=== PATIENT | female | born 1960 | race Caucasian/White ===

== ENCOUNTER 2017-05-08 09:23 | Emergency (ER) | payer OTHER ==
[2017-05-08] MEDS ORDERED: Acetaminophen/oxyCODONE 325-5 MG Tab PO ONE (09:56)
[2017-05-08] MEDS ORDERED: Ibuprofen 600 MG Tab PO ONE (09:57)
[2017-05-08] MEDS ORDERED: Ondansetron 4 MG Tab.DIS PO ONE (09:57)
[2017-05-08] MEDS ORDERED: Bupivacaine 0.5% 10 ML SDV INJECT ONE (10:04)
--- NOTE | 2017-05-08 10:04 | EDM.PDOC ---
ED HPI GENERAL MEDICAL PROBLEM - General Chief Complaint: Laceration Stated Complaint: FINGER INJURY Time Seen by Provider: 05/08/17 09:56 Source of Information: Reports: Patient History Limitations: Reports: No Limitations - History of Present Illness INITIAL COMMENTS - FREE TEXT/NARRATIVE: 56-year-old female presents the ED with a crush type injury to distal aspect of her right index finger. Of note she is right-hand dominant. Injury occurred in the workplace about 0830 hrs. this morning. 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 She reports that the finger got slammed in the cooler door handle. She pulled her finger out of the closed door. Resultant injury to the distal aspect of the right index finger. Tetanus toxoid is up-to-date about 4 years ago. She denies any other injuries. Onset: Today Onset Date: 05/08/17 Onset Time: 08:30 Duration: Minutes: Location: Reports: Upper Extremity, Right (Right distal index finger) Quality: Reports: Ache, Stabbing, Throbbing Severity: Moderate Improves with: Reports: None Worsens with: Reports: Movement Context: Reports: Trauma (Slammed in a large cooler door) Associated Symptoms: Reports: No Other Symptoms ( in the workplace) Treatments [employer]: Reports: Other (see below) (None) Right Hand Pain Score (Numeric/FACES): 6 - Related Data Allergies Allergy/AdvReac Type Severity Reaction Status Date / Time acetaminophen [From Percocet] Allergy Irritabilit Verified 05/08/17 10:26 y diazepam [From Valium] Allergy Irritabilit Verified 05/08/17 10:28 y morphine Allergy Anxiety Verified 05/08/17 10:27 oxycodone [From Percocet] Allergy Irritabilit Verified 05/08/17 10:26 y IV p-Dye Allergy Anaphylactic Uncoded 05/08/17 09:57 Shock Home Meds: Home Meds Meclizine [Antivert] 25 mg PO Q6HR PRN 07/06/15 [History] amLODIPine [Norvasc] 10 mg PO DAILY 07/06/15 [History] Cyclobenzaprine [Flexeril] 10 mg PO Q8H PRN 05/08/17 [History] Lisinopril/Hydrochlorothiazide [Lisinopril-Hctz 20-25 mg Tab] 20 - 25 mg PO BEDTIME 05/08/17 [History] Minocycline HCl 100 mg PO BID #20 capsule 05/08/17 [Rx] Nabumetone 500 mg PO BID 05/08/17 [History] Omeprazole 40 mg PO DAILY 05/08/17 [History] traMADol [Ultram] 50 mg PO Q6H #30 tablet 05/08/17 [Rx] Past Medical History Other HEENT History: inner ear infection, glasses Other Musculoskeletal History: rheumatoid arthritis Social & Family History - Tobacco Use Smoking Status *Q: Never Smoker Second Hand Smoke Exposure: Yes - Alcohol Use Days Per Week of Alcohol Use: 0 Number of Drinks Per Day: 0 Total Drinks Per Week: 0 - Recreational Drug Use Recreational Drug Use: No Drug Use in Last 12 Months: No - Living Situation & Occupation Occupation: Employed ED ROS GENERAL - Review of Systems Review Of Systems: See Below Constitutional: Reports: No Symptoms HEENT: Reports: No Symptoms Respiratory: Reports: No Symptoms Cardiovascular: Reports: Blood Pressure Problem Endocrine: Reports: No Symptoms GI/Abdominal: Reports: No Symptoms : Reports: No Symptoms Musculoskeletal: Reports: Back Pain (Occasional positive back pain), Joint Pain , Other Skin: Reports: No Symptoms Neurological: Reports: No Symptoms Psychiatric: Reports: No Symptoms Hematologic/Lymphatic: Reports: No Symptoms Immunologic: Reports: No Symptoms ED EXAM, SKIN/RASH Exam: See Below Exam Limited By: No Limitations General Appearance: Alert, WD/WN, Mild Distress Extremities: Other (Examination was confined to the injury to her right hand. She has suffered a crush type injury to the distal aspect of her right index finger. The nail has been completely avulsed from the nail bed. The finger is deformed with deviation to the ulnar aspect. Suspect underlying phalangeal fracture which would be open.) Neurological: Alert, Oriented ( No other fingers are injured.), CN II-XII Intact , Normal Cognition, Normal Gait Psychiatric: Normal Affect, Normal Mood Skin: Warm, Dry, Intact, Normal Color, No Rash ED SKIN PROCEDURES - Laceration/Wound Repair Right Distal Finger Lac/Wound length In cm: 2.0 Appearance: Subcutaneous, Clean Distal NVT: Neuro & Vascular Intact Anesthetic Type: Digital Local Anesthesia - Bupivicaine (Marcaine): 0.5% Plain Local Anesthetic Volume: Other (6cc) Skin Prep: Saline Exploration/Debridement/Repair: Wound Explored, Multiple Flaps Aligned Closed with: Sutures Suture Size: 4-0 # of Sutures: 3 Suture Type: Nylon, Running, Simple Suture Size: 4-0 # of Sutures: 3 (Ethilon sutures were used through the fingernail to reapproximate and realign the fingernail avulsion from the nailbed.) Repaired with: Vicryl Course - Vital Signs Last Recorded V/S: Last Vital Signs Temp 36.1 C 05/08/17 09:48 Pulse 78 05/08/17 09:48 Resp 16 05/08/17 09:48 BP 136/79 05/08/17 09:48 Pulse Ox 100 05/08/17 09:48 - Orders/Labs/Meds Orders: Active Orders 24 hr Category Date Time Status Fingers Second Digit Rt F6 [CR] Stat Exams 05/08/17 09:57 Taken Fingers Second Digit Rt F6 [CR] Stat Exams 05/08/17 11:12 Taken Meds: Medications Discontinued Medications Generic Name Dose Route Start Last Admin Trade Name Freq PRN Reason Stop Dose Admin Amoxicillin/Clavulanate Potassium 1 tab 05/08/17 11:14 05/08/17 11:23 Augmentin 875 Mg/125 Mg PO 05/08/17 11:15 1 tab ONETIME ONE Administration Bupivacaine HCl 10 ml 05/08/17 10:04 05/08/17 10:17 Sensorcaine-Mpf 0.5% INJECT 05/08/17 10:05 10 ml ONETIME ONE Administration Ibuprofen 600 mg 05/08/17 09:57 05/08/17 10:17 Motrin PO 05/08/17 09:58 600 mg ONETIME ONE Administration Ondansetron HCl 4 mg 05/08/17 09:57 05/08/17 10:19 Zofran Odt PO 05/08/17 09:58 4 mg ONETIME ONE Administration Oxycodone/Acetaminophen 1 tab 05/08/17 09:56 05/08/17 10:21 Percocet 325-5 Mg PO 05/08/17 09:57 Not Given ONETIME ONE Tramadol HCl 50 mg 05/08/17 10:16 05/08/17 10:23 Ultram PO 05/08/17 10:17 50 mg ONETIME ONE Administration - Radiology Interpretation Free Text/Narrative:: 56-year-old female presents to the ED with crush injury to the distal aspect of her right index finger. The nail has been completely avulsed from the nailbed. There is deviation of the phalanx ulnarly suggesting fracture. There is an open laceration in this area suggesting an open fracture. Plan digital block with Marcaine 0.5%. Also given Tramadol 50mg tablet(allergy to Percocet) with Motrin 600 mg by mouth and Zofran 4 mg sublingual for pain relief. X-ray of the finger will be obtained and decision made on how best to manage the fracture and provide wound closure. - Re-Assessments/Exams Free Text/Narrative Re-Assessment/Exam: 05/08/17 10:45: X-rays of the right index finger reveal a fracture of the proximal phalanx with a large enough fragment that could be pinned back in place. Digital block is been carried out using 0.5% Marcaine. 05/08/17 11:30: Finger and fingernail which has been avulsed were replaced back into position. She is wearing acrylic fingernails and the extremely hard and very difficult to allow suture needle to pass through to reapproximate the fingertip in its normal position. Lacerations both ulnar and radial aspect on the dorsal aspect of the finger were sutured with 5-0 Ethilon 3. 3 4-0 Vicryl sutures were placed through the nail and distal finger to reapproximate the nail in anatomical position. X-ray done post suture repair reveals less than ideal approximation of the bone fragment. I therefore contacted bone and joint clinic in [place] and will have her seen by one of the hand surgeons early next week to see if they would treat this differently with pinning of the distal phalanx. In the meantime she will be placed on minocycline 100 mg twice daily for 10 days to prevent secondary wound infection since it has good coverage against MRSA etc. Did receive Augmentin 875 mg orally in the ED. She will prefers tramadol for pain and therefore will use tramadol 50 mg tablet 1 or 2 every 4-6 hours for pain relief. 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 Departure - Departure Time of Disposition: 11:33 Disposition: Home, Self-Care 01 Condition: Fair Clinical Impression: Open fracture of finger of right hand Qualifiers: Encounter type: initial encounter Finger: index finger Phalanx: distal Fracture alignment: displaced Qualified Code(s): S62.630B - Displaced fracture of distal phalanx of right index finger, initial encounter for open fracture - Discharge Information Prescriptions: Minocycline HCl 100 mg PO BID #20 capsule traMADol [Ultram] 50 mg PO Q6H #30 tablet Instructions: Finger Fracture, [id number] Referrals: PCP,None [Primary Care Provider] - Forms: ED Department Discharge, ED Return to Work/School Form Additional Instructions: Evaluation the emergency room this morning in regards to crush type injury to the distal aspect of your right index finger. This occurred in the workplace this morning. Injury resulted in a bassinet of the fingernail from the nail bed. And lacerations adjacent to the nail on both sides. X-rays confirm a fracture through the distal phalanx meaning this is an open fracture with bone exposed to the outside elements. Acrylic fingernail in place made suture repair difficult to reapproximate the nail and bone in normal position. X-rays post laceration repair shows the bone to still be slightly out of position. Therefore I contacted bone and joint clinic in [facility] and they will have a one of the hand surgeons review the wound next week. They will call you to set up an appropriate appointment time. In the meantime I would suggest keeping your right hand elevated above the level of her heart as long as much as possible for the next 3 days. Tramadol 50 mg one or 2 tablets every 6-6 hours as necessary for pain relief. Initial dressing should remain in place for 2 days and then meet be taken off. May be then cleansed daily with soap and water showering is okay. Then apply topical antibiotic such as bacitracin or Polysporin to the wound and cover with a bandage. Aluminum splint should be worn at all times to protect the fracture and other injury to the finger. Antibiotics will be minocycline 100 mg twice daily for the next 10 days to prevent secondary wound infection. You will be off work for approximately 6 weeks until the fracture has knitted together and you continue your finger normally. You may return to work if there are return to work duties where you would only have to use her left hand but I will leave that up to your employer. - My Orders Last 24 Hours: My Active Orders 05/08/17 09:57 Fingers Second Digit Rt F6 [CR] Stat 05/08/17 11:12 Fingers Second Digit Rt F6 [CR] Stat - Assessment/Plan Last 24 Hours: My Active Orders 05/08/17 09:57 Fingers Second Digit Rt F6 [CR] Stat 05/08/17 11:12 Fingers Second Digit Rt F6 [CR] Stat
[2017-05-08] MEDS ORDERED: traMADol 50 MG Tab PO ONE (10:16)
[2017-05-08] MEDS ORDERED: Amoxicillin/Clavulanate K 875-125 MG Tab PO ONE (11:14)
[2017-05-08 11:57] VITALS: BP 117/77
--- NOTE | 2017-05-08 12:07 | CR ---
Right second finger: Four views of the right second finger were obtained. Displaced tuft fracture is seen within the distal right second finger. Soft tissue swelling is noted. No proximal abnormality is seen. Impression: 1. Displaced tuft fracture with soft tissue swelling. Diagnostic code #3
--- NOTE | 2017-05-08 12:07 | CR ---
Right second finger: Four views of the right second finger were obtained. Comparison: Previous study performed earlier on same day (10:00 a.m.). Previous fracture shows reduction. Soft tissue swelling and soft tissue injury are noted. No additional abnormality is seen. Impression: 1. Reduction of previous fracture and other incidental findings. Diagnostic code #2
== END 2017-05-08 12:00 | disposition home or self-care (01) ==
LOC: JD.ED 09:23
DX: S62.630B Displaced fracture of distal phalanx of right index finger, initial encounter for open fracture (principal); Z79.899 Other long term (current) drug therapy; Z88.6 Allergy status to analgesic agent; Z91.041 Radiographic dye allergy status; Z88.8 Allergy status to other drugs, medicaments and biological substances; W23.0XXA Caught, crushed, jammed, or pinched between moving objects, initial encounter; Y99.0 Civilian activity done for income or pay
CPT/HCPCS: 12001; 73140; 99284; A9270; 99283-25

== ENCOUNTER 2018-09-27 07:58 | Emergency (ER) | payer OTHER ==
[2018-09-27] MEDS ORDERED: Famotidine 20 MG/2 ML SDV IVPUSH ONE (08:46)
[2018-09-27] MEDS ORDERED: diphenhydrAMINE 50 MG Cap PO ONE (08:46)
[2018-09-27] MEDS ORDERED: EPINEPHrine 1 MG/ML SDV IM ONE ×2 (08:46→09:54)
[2018-09-27] MEDS ORDERED: Sodium Chloride 0.9% 10 ML Syringe FLUSH PRN (08:46)
[2018-09-27] MEDS ORDERED: methylPREDNISolone Sodium Succinate 125 MG/2 ML SDV IVPUSH ONE (08:46)
--- NOTE | 2018-09-27 08:48 | EDM.PDOC ---
ED HPI GENERAL MEDICAL PROBLEM - General Chief Complaint: Skin Complaint Stated Complaint: RASH Time Seen by Provider: 09/27/18 08:17 Source of Information: Reports: Patient, RN Notes Reviewed - History of Present Illness INITIAL COMMENTS - FREE TEXT/NARRATIVE: 58-year-old female comes in allergic drug rash. She was started on Bactrim for UTI about a week ago. Did not improve with the Bactrim so he was switched over to amoxicillin 2 days ago. She has had about 3 doses of amoxicillin started breaking out itchy rash late last evening that is continued through the night and even worse this morning. The rash is fairly generalized to the neck trunk arms and legs. She still does have some voiding frequency but symptoms are better. No current fever chills nausea or vomiting. No major back discomfort. No throat discomfort, throat or facial swelling. - Related Data Allergies Allergy/AdvReac Type Severity Reaction Status Date / Time Iodinated Contrast- Oral and Allergy Severe Anaphylactic Verified 09/27/18 08:09 IV Dye Shock acetaminophen Allergy Stomach Verified 09/27/18 08:10 [From Tylenol-Codeine #3] Ache codeine Allergy Stomach Verified 09/27/18 08:10 [From Tylenol-Codeine #3] Ache diazepam [From Valium] Allergy Irritabilit Verified 09/27/18 08:09 y morphine Allergy Anxiety Verified 09/27/18 08:09 oxycodone [From Percocet] Allergy Irritabilit Verified 09/27/18 08:09 y Home Meds: Home Meds Meclizine [Antivert] 25 mg PO Q6HR PRN 07/06/15 [History] amLODIPine [Norvasc] 10 mg PO DAILY 07/06/15 [History] Cyclobenzaprine [Flexeril] 10 mg PO Q8H PRN 05/08/17 [History] Lisinopril/Hydrochlorothiazide [Lisinopril-Hctz 20-25 mg Tab] 20 - 25 mg PO BEDTIME 05/08/17 [History] Nabumetone 500 mg PO BID 05/08/17 [History] Omeprazole 40 mg PO DAILY 05/08/17 [History] Acetaminophen/Aspirin/Caffeine [Pain Reliever Plus] 2 tab PO Q4H PRN 09/27/18 [ History] Amoxicillin 875 mg PO BID 09/27/18 [History] Hydrocortisone [Cortizone-10] 1 applic TOP ASDIRECTED PRN 09/27/18 [History] Magnesium Oxide [Magnesium] 400 mg PO DAILY 09/27/18 [History] Menthol [Biofreeze] 1 applic TOP ASDIRECTED PRN 09/27/18 [History] Naproxen Sodium 220 mg PO DAILY PRN 09/27/18 [History] Phenazopyridine HCl 99.5 mg PO ASDIRECTED PRN 09/27/18 [History] Phenazopyridine [Pyridium] 200 mg PO TID 09/27/18 [History] Past Medical History HEENT History: Reports: Impaired Vision Other HEENT History: inner ear infection, glasses Cardiovascular History: Reports: Hypertension Gastrointestinal History: Reports: GERD Genitourinary History: Reports: Renal Disease, UTI, Recurrent PEDIATRICIAN History: Reports: Musculoskeletal History: Reports: Fracture Other Musculoskeletal History: rheumatoid arthritis Neurological History: Reports: Migraines, Other (See Below) Other Neuro History: tremors Hematologic History: Reports: Anemia - Infectious Disease History Infectious Disease History: Reports: Chicken Pox, Other (See Below) Other Infectious Disease History: Hepatitis at age 7 from dirty fruit. - Past Surgical History GI Surgical History: Reports: Appendectomy, Cholecystectomy Social & Family History - Tobacco Use Smoking Status *Q: Never Smoker Second Hand Smoke Exposure: No - Caffeine Use Caffeine Use: Reports: Coffee, Soda - Recreational Drug Use Recreational Drug Use: No - Living Situation & Occupation Occupation: Employed ED ROS GENERAL - Review of Systems Review Of Systems: See Below Constitutional: Denies: Fever, Chills, Diaphoresis HEENT: Denies: Throat Pain, Throat Swelling Respiratory: Denies: Shortness of Breath, Wheezing, Cough Cardiovascular: Denies: Chest Pain GI/Abdominal: Denies: Abdominal Pain, Nausea, Vomiting : Reports: Dysuria, Frequency Musculoskeletal: Reports: No Symptoms Skin: Reports: Pruritis, Rash Neurological: Reports: No Symptoms ED EXAM, SKIN/RASH Exam: See Below General Appearance: Alert, Moderate Distress Eye Exam: Bilateral Eye: PERRL Nose: Normal Inspection Throat/Mouth: Normal Inspection, Normal Oropharynx, No Airway Compromise Head: Atraumatic. No: Facial Swelling Neck: Supple Respiratory/Chest: No Respiratory Distress, Lungs Clear. No: Rhonchi, Wheezing Cardiovascular: Regular Rate, Rhythm GI/Abdominal: Non-Tender Extremities: Normal Inspection Neurological: Alert, Oriented, No Motor/Sensory Deficits Skin: Warm, Dry, Rash (Extensive early fine erythematous rash covering neck, trunk, proximal arms and legs.) Course - Vital Signs Last Recorded V/S: Last Vital Signs Temp 97.7 F 09/27/18 08:10 Pulse 92 09/27/18 08:10 Resp 18 09/27/18 08:10 BP 118/76 09/27/18 08:10 Pulse Ox 98 09/27/18 08:10 - Orders/Labs/Meds Orders: Active Orders 24 hr Category Date Time Status Peripheral IV Care [RC] . DIRECTED Care 09/27/18 08:46 Active CULTURE URINE [RM] Stat Lab 09/27/18 11:10 Ordered Sodium Chloride 0.9% [Saline Flush] Med 09/27/18 08:46 Active 10 ml FLUSH ASDIRECTED PRN Peripheral IV Insertion Adult [OM.PC] Stat Oth 09/27/18 08:46 Ordered Medication Orders Sodium Chloride (Saline Flush) 10 ml FLUSH ASDIRECTED PRN PRN Reason: Keep Vein Open Labs: Laboratory Tests 09/27/18 Range/Units 09:30 Urine Color [place] H (Yellow) Urine Appearance Clear (Clear) Urine pH 6.0 (5.0-8.0) Ur Specific [place] 1.020 (1.005-1.030) Urine Protein 2+ H (Negative) Urine Glucose (UA) Trace H (Negative) Urine Ketones Trace H (Negative) Urine Occult Blood Negative (Negative) Urine Nitrite Positive H (Negative) Urine Bilirubin 1+ H (Negative) Urine Urobilinogen 1.0 (0.2-1.0) Ur Leukocyte Esterase Negative (Negative) Urine RBC 0-5 (0-5) /hpf Urine WBC 0-5 (0-5) /hpf Ur Epithelial Cells Not seen (0-5) /hpf Urine Bacteria Few (FEW) /hpf Urine Mucus Not seen (FEW) /hpf Meds: Medications Generic Name Dose Route Start Last Admin Trade Name Freq PRN Reason Stop Dose Admin Sodium Chloride 10 ml 09/27/18 08:46 Saline Flush FLUSH ASDIRECTED PRN Keep Vein Open Discontinued Medications Generic Name Dose Route Start Last Admin Trade Name Freq PRN Reason Stop Dose Admin Diphenhydramine HCl 50 mg 09/27/18 08:46 09/27/18 09:17 Benadryl PO 09/27/18 08:47 50 mg ONETIME ONE Administration Epinephrine HCl 0.3 mg 09/27/18 08:46 09/27/18 09:19 Adrenalin IM 09/27/18 08:47 0.3 mg ONETIME ONE Administration Epinephrine HCl 0.3 mg 09/27/18 09:54 09/27/18 10:34 Adrenalin IM 09/27/18 09:55 0.3 mg ONETIME ONE Administration Famotidine 20 mg 09/27/18 08:46 09/27/18 09:15 Pepcid IVPUSH 09/27/18 08:47 20 mg ONETIME ONE Administration Methylprednisolone Sodium Succinate 125 mg 09/27/18 08:46 09/27/18 09:13 Solu-Medrol IVPUSH 09/27/18 08:47 125 mg ONETIME ONE Administration - Re-Assessments/Exams Free Text/Narrative Re-Assessment/Exam: 09/27/18 11:40 We did treat patient with epi 0.3 mg IM, Benadryl 50 mg by mouth, Solu-Medrol 125 mg IV, Pepcid 20 mg IV. His helped some, did give a repeat dose of epinephrine as well as she still was itching somewhat at time of recheck about 45 minutes after the epinephrine. Now at time of discharge the rash is still present but not quite as intense she still does have some itchiness but much improved from arrival I am going to continue her on oral prednisone as well as further of Benadryl, Claritin or Zantac. Discharge instructions as documented. Culture of the urine has been done. No further antibiotics for now. Departure - Departure Time of Disposition: 11:08 Disposition: Home, Self-Care 01 Condition: Fair Clinical Impression: Allergic reaction caused by a drug Qualifiers: Encounter type: initial encounter Qualified Code(s): T78.40XA - Allergy, unspecified, initial encounter - Discharge Information Instructions: Drug Allergy, [id number] Referrals: PCP,None [Primary Care Provider] - Forms: ED Department Discharge Additional Instructions: Urine culture has been done, that typically takes about 48 hours to grow out, follow-up with your provider Saturday morning and your provider can check with our hospital lab on culture results for you. Stop the amoxicillin. Continue Benadryl 50 mg up to 3 times daily, you may also start either Claritin or Zantac and take that until rash is completely gone. You may stop the Benadryl once the itchiness has started to resolve. Prednisone 40 mg twice daily for 2 days and then every morning for an additional 2 days. Return to ED as needed if symptoms worsening in any way. - My Orders Last 24 Hours: My Active Orders 09/27/18 08:46 Peripheral IV Care [RC] . DIRECTED Sodium Chloride 0.9% [Saline Flush] 10 ml FLUSH ASDIRECTED PRN Peripheral IV Insertion Adult [OM.PC] Stat 09/27/18 11:10 CULTURE URINE [RM] Stat - Assessment/Plan Last 24 Hours: My Active Orders 09/27/18 08:46 Peripheral IV Care [RC] . DIRECTED Sodium Chloride 0.9% [Saline Flush] 10 ml FLUSH ASDIRECTED PRN Peripheral IV Insertion Adult [OM.PC] Stat 09/27/18 11:10 CULTURE URINE [RM] Stat
[2018-09-27 16:39] VITALS: BP 114/60
== END 2018-09-27 11:40 | disposition home or self-care (01) ==
LOC: JD.ED 07:58
DX: L27.0 Generalized skin eruption due to drugs and medicaments taken internally (principal); T36.0X5A Adverse effect of penicillins, initial encounter; I10 Essential (primary) hypertension; Z91.041 Radiographic dye allergy status; Z88.5 Allergy status to narcotic agent; Z88.8 Allergy status to other drugs, medicaments and biological substances; Z79.899 Other long term (current) drug therapy
CPT/HCPCS: 81001; 87086; 96372; 96374; 96375; 99284; A9270; J0171; J2930; J3490; 99283

== ENCOUNTER 2018-10-25 15:57 | Emergency (ER) | payer OTHER ==
[2018-10-25] MEDS ORDERED: Metoclopramide 10 MG/2 ML SDV IVPUSH ONE ×2 (16:51→20:26)
[2018-10-25] MEDS ORDERED: Lactated Ringers 1,000 ML IV ONE ×2 (17:37→21:07)
--- NOTE | 2018-10-25 18:52 | EDM.PDOC ---
ED HPI GENERAL MEDICAL PROBLEM - General Chief Complaint: Neurological Problem Stated Complaint: EAR PAIN/DIZZY/ALLERGIC RX Time Seen by Provider: 10/25/18 17:42 Source of Information: Reports: Patient, Family History Limitations: Reports: No Limitations - History of Present Illness INITIAL COMMENTS - FREE TEXT/NARRATIVE: 58 y/o F comes to the ED today for flu-like symptoms, diarrhea, cracking/ popping in the ears and productive cough x 1 week. She works at [employer] and has multiple sick contacts. She was sick with the "stomach flu" 2 weeks ago and her has similar symptoms as she has right now. She c/o F/C , vertigo and cough with clear sputum. She denies chest pain, wheezing, SOB, abdominal pain, nausea. She does get migraines, which she believed she had this morning and took "Major Pain" with relief. She also had vomiting and vertigo earlier this AM, common with her migraines, which have improved since taking her medication. She also thinks she may have an ear infection with the "cracking /popping" in her ears. No other symptoms at this time. She did not have the flu vaccine. She does not currently have a PCP, she goes to [facility]. - Related Data Allergies Allergy/AdvReac Type Severity Reaction Status Date / Time Iodinated Contrast- Oral and Allergy Severe Anaphylactic Verified 10/25/18 16:10 IV Dye Shock acetaminophen Allergy Stomach Verified 10/25/18 16:10 [From Tylenol-Codeine #3] Ache codeine Allergy Stomach Verified 10/25/18 16:10 [From Tylenol-Codeine #3] Ache diazepam [From Valium] Allergy Irritabilit Verified 10/25/18 16:10 y morphine Allergy Anxiety Verified 10/25/18 16:10 oxycodone [From Percocet] Allergy Irritabilit Verified 10/25/18 16:10 y Home Meds: Home Meds Meclizine [Antivert] 25 mg PO Q6HR PRN 07/06/15 [History] amLODIPine [Norvasc] 10 mg PO DAILY 07/06/15 [History] Cyclobenzaprine [Flexeril] 10 mg PO Q8H PRN 05/08/17 [History] Lisinopril/Hydrochlorothiazide [Lisinopril-Hctz 20-25 mg Tab] 20 - 25 mg PO BEDTIME 05/08/17 [History] Nabumetone 500 mg PO BID 05/08/17 [History] Omeprazole 40 mg PO DAILY 05/08/17 [History] Acetaminophen/Aspirin/Caffeine [Pain Reliever Plus] 2 tab PO Q4H PRN 09/27/18 [ History] Amoxicillin 875 mg PO BID 09/27/18 [History] Hydrocortisone [Cortizone-10] 1 applic TOP ASDIRECTED PRN 09/27/18 [History] Magnesium Oxide [Magnesium] 400 mg PO DAILY 09/27/18 [History] Menthol [Biofreeze] 1 applic TOP ASDIRECTED PRN 09/27/18 [History] Naproxen Sodium 220 mg PO DAILY PRN 09/27/18 [History] Phenazopyridine HCl 99.5 mg PO ASDIRECTED PRN 09/27/18 [History] Phenazopyridine [Pyridium] 200 mg PO TID 09/27/18 [History] Past Medical History HEENT History: Reports: Impaired Vision Other HEENT History: inner ear infection, glasses Cardiovascular History: Reports: Hypertension Gastrointestinal History: Reports: GERD Genitourinary History: Reports: Renal Disease, UTI, Recurrent 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 - Past Surgical History GI Surgical History: Reports: Appendectomy, Cholecystectomy Social & Family History - Caffeine Use Caffeine Use: Reports: Coffee, Soda - Living Situation & Occupation Occupation: Employed ED ROS ENT - Review of Systems Review Of Systems: See Below Constitutional: Reports: Fever, Chills. Denies: Decreased Appetite HEENT: Reports: Eye Pain (sensitive to light), Throat Pain, Vertigo Respiratory: Reports: Wheezing, Cough, Sputum (clear). Denies: Shortness of Breath Cardiovascular: Reports: No Symptoms. Denies: Chest Pain GI/Abdominal: Reports: Diarrhea (x 1 day), Vomiting ( this morning). Denies: Abdominal Pain, Bloody Stool, Decreased Appetite, Nausea : Reports: No Symptoms Musculoskeletal: Reports: Neck Pain (swollen lymph nodes) Skin: Reports: No Symptoms Neurological: Reports: Headache (improving after she took "Major Pain" at home) ED EXAM, ENT - Physical Exam Exam: See Below Exam Limited By: No Limitations General Appearance: Alert Eye Exam: Bilateral Eye: EOMI, PERRL Ears: Normal External Exam, Hearing Grossly Normal, Normal TMs, Other (Canal erythema). No: TM Bulging Nose: Normal Inspection, Normal Mucousa, No Blood Mouth/Throat: Normal Gums, Normal Lips, Normal Oropharynx (some erythema present ), Normal Teeth Neck: Supple, Non-Tender, Full Range of Motion, Lymphadenopathy (L), Lymphadenopathy (R) Respiratory/Chest: No Respiratory Distress, Lungs Clear, Normal Breath Sounds, No Accessory Muscle Use, Chest Non-Tender Cardiovascular: Normal Peripheral Pulses, Regular Rate, Rhythm, No Edema, No Gallop, No JVD, No Rub, Other (Murmur) GI/Abdominal: Soft, Non-Tender, No Organomegaly, No Distention, No Abnormal Bruit, No Mass, Abnormal Bowel Sounds (hyperactive) Skin: Warm, Dry, Intact, Normal Color, No Rash, Increased Warmth Course - Vital Signs Last Recorded V/S: Last Vital Signs Temp 99.8 F 10/25/18 16:30 Pulse 123 H 10/25/18 16:30 Resp 18 10/25/18 16:30 BP 108/69 10/25/18 16:30 Pulse Ox 99 10/25/18 16:30 - Orders/Labs/Meds Orders: Active Orders 24 hr Category Date Time Status EKG Documentation Completion [RC] ROUTINE Care 10/25/18 16:56 Active CXR [Chest 2V] [CR] Stat Exams 10/25/18 18:40 Taken CULTURE STREP A CONFIRMATION [RM] Stat Lab 10/25/18 19:00 Results Rapid Strep w/culture conf [STREP SCRN A RAPID W CULT Lab 10/25/18 19:00 Results CONF] [RM] Stat Lactated Ringers [Ringers, Lactated] 1,000 ml Med 10/25/18 20:15 Active IV ASDIRECTED Medication Orders Lactated Ringer's (Ringers, Lactated) 1,000 mls @ 999 mls/hr IV ASDIRECTED SONNY Last Admin: 10/25/18 20:16 Dose: 999 mls/hr Labs: Laboratory Tests 10/25/18 10/25/18 Range/Units 16:20 16:20 WBC 10.00 (3.98-10.04) K/mm3 RBC 5.07 (3.98-5.22) M/mm3 Hgb 14.1 (11.2-15.7) gm/L Hct 44.8 (34.1-44.9) % MCV 88.4 (79.4-94.8) fl MCH 27.8 (25.6-32.2) pg MCHC 31.5 L (32.2-35.5) g/dl RDW Std Deviation 56.4 H (36.4-46.3) fL Plt Count 269 (182-369) K/mm3 MPV 10.6 (9.4-12.3) fl Neut % (Auto) 94.2 H (34.0-71.1) % Lymph % (Auto) 2.9 L (19.3-51.7) % Sumner % (Auto) 1.6 L (4.7-12.5) % Eos % (Auto) 0.6 L (0.7-5.8) Baso % (Auto) 0.1 (0.1-1.2) % Neut # (Auto) 9.42 H (1.56-6.13) K/mm3 Lymph # (Auto) 0.29 L (1.18-3.74) K/mm3 Sumner # (Auto) 0.16 L (0.24-0.36) K/mm3 Eos # (Auto) 0.06 (0.04-0.36) K/mm3 Baso # (Auto) 0.01 (0.01-0.08) K/mm3 Manual Slide Review Normal smear Sodium 142 (136-145) mEq/L Potassium 3.1 L (3.5-5.1) mEq/L Chloride 105 (98-107) mEq/L Carbon Dioxide 22 (21-32) mEq/L Anion Gap 18.1 H (5-15) BUN 26 H (7-18) mg/dL Creatinine 1.3 H (0.55-1.02) mg/dL Est Cr Clr Drug Dosing 42.44 mL/min Estimated GFR (MDRD) 42 (>60) mL/min BUN/Creatinine Ratio 20.0 H (14-18) Glucose 101 (74-106) mg/dL Calcium 9.1 (8.5-10.1) mg/dL Total Bilirubin 0.9 (0.2-1.0) mg/dL AST 22 (15-37) U/L ALT 45 (14-59) U/L Alkaline Phosphatase 81 (46-116) U/L Troponin I < 0.017 (0.00-0.056) ng/mL Total Protein 7.1 (6.4-8.2) g/dl Albumin 3.9 (3.4-5.0) g/dl Globulin 3.2 gm/dL Albumin/Globulin Ratio 1.2 (1-2) Meds: Medications Generic Name Dose Route Start Last Admin Trade Name Freq PRN Reason Stop Dose Admin Lactated Ringer's 1,000 mls @ 999 mls/hr 10/25/18 20:15 10/25/18 20:16 Ringers, Lactated IV 999 mls/hr ASDIRECTED SONNY Administration Discontinued Medications Generic Name Dose Route Start Last Admin Trade Name Freq PRN Reason Stop Dose Admin Lactated Ringer's 1,000 mls @ 999 mls/hr 10/25/18 17:37 10/25/18 17:42 Ringers, Lactated IV 10/25/18 18:37 999 mls/hr .BOLUS ONE Administration Lactated Ringer's 1,000 mls @ 999 mls/hr 10/25/18 21:07 10/25/18 21:10 Ringers, Lactated IV 10/25/18 22:07 999 mls/hr .BOLUS ONE Administration Meclizine HCl 12.5 mg 10/25/18 20:02 10/25/18 20:08 Antivert PO 10/25/18 20:03 12.5 mg ONETIME ONE Administration Metoclopramide HCl 10 mg 10/25/18 16:51 10/25/18 16:55 Reglan IVPUSH 10/25/18 16:52 10 mg ONETIME ONE Administration Metoclopramide HCl 10 mg 10/25/18 20:26 10/25/18 20:30 Reglan IVPUSH 10/25/18 20:27 10 mg ONETIME ONE Administration Potassium Chloride 40 meq 10/25/18 18:55 10/25/18 19:16 Klor-Con M20 PO 10/25/18 18:56 40 meq ONETIME ONE Administration - Re-Assessments/Exams Free Text/Narrative Re-Assessment/Exam: 10/25/18 Lactated Ringers 1L given for dehydration CBC, CMP ordered EKG read by Dr. Marion as Sinus tach @110, left atrial hypertrophy, mildly prolonged QT interval 10/25/18 18:53 I have ordered CXR, Strep and Influenza screen CBC shows no leukocytosis. CMP shows low potassium at 3.1 and Anion Gap 18.1. She is dehydrated. Will replace potassium. 10/25/18 20:[address] Ibrahim and myself and there seems to be nothing acute. Strep and Influenza are both negative. 10/25/18 20:12 Heart Rate is elevated, 126. Will give another 1L Lactated ringers. 10/25/18 22:41 3L Lactated Ringers given. HR has decreased to 112 and blood pressure is now 110 /62. She is feeling better and would like to go home. At this time, with the negative workup and the dehydration seeming to be her main problem, it seems reasonable to send her home to rest, hydrate and continue Phenergan PRN N/V and motion sickness. She and her family agree with this plan. Also stated that if she does get worse, that she should come back to be re-evaluated. Departure - Departure Time of Disposition: 22:44 Disposition: Home, Self-Care 01 Condition: Fair Clinical Impression: Migraine, Sinus congestion, Cough, Diarrhea - Discharge Information *PRESCRIPTION DRUG MONITORING PROGRAM REVIEWED*: Not Applicable *COPY OF PRESCRIPTION DRUG MONITORING REPORT IN PATIENT DAVI: Not Applicable Instructions: Diarrhea, Adult, [id number], Dehydration, Adult, [id number], Migraine Headache, [id number], Upper Respiratory Infection, Adult Referrals: PCP,None [Primary Care Provider] - Forms: ED Department Discharge Additional Instructions: You were seen in the ED for multiple issues including migraine OTT w/ associated nausea and dizziness, upper respiratory infection, and diarrhea. You labs here were unremarkable for infection. Strep, Influenza, and chest Xray were all negative. You also were not found to have an ear infection. However, you were found to be dehydrated and you received electrolyte supplementation as well as 3L of IV fluids. You also received medication (Reglan) for your nausea and dizziness which seemed to alleviate your symptoms. At this time, due to the negative workup, it seems you may be suffering from Migraine and viral illness. Continue taking your "Major Pain" medication for your Migraine as needed. Also recommend staying hydrated with water, Gatorade, and/or Pedialyte. Also, keep a bland diet for your diarrhea. Recommend BRAT diet (Banana, Rice, Applesauce, Morganza). If your ears continue to bother you, you can try [id number] decongestant medications or try the Tylenol Cold and Flu you already have at home. You will be sent home with a prescription for Phenergan. Take 1 tablet every 4- 6 hours as needed for nausea/vomiting and motion sickness. Do not take your Meclizine at the same time, as they are very similar. Follow up with your primary care provider. If you have any new symptoms or your symptoms worsen, please come back to the ED. - My Orders Last 24 Hours: My Active Orders 10/25/18 16:56 EKG Documentation Completion [RC] ROUTINE 10/25/18 18:40 CXR [Chest 2V] [CR] Stat 10/25/18 19:00 CULTURE STREP A CONFIRMATION [RM] Stat Rapid Strep w/culture conf [STREP SCRN A RAPID W CULT CONF] [RM] Stat 10/25/18 20:15 Lactated Ringers [Ringers, Lactated] 1,000 ml IV ASDIRECTED - Assessment/Plan Last 24 Hours: My Active Orders 10/25/18 16:56 EKG Documentation Completion [RC] ROUTINE 10/25/18 18:40 CXR [Chest 2V] [CR] Stat 10/25/18 19:00 CULTURE STREP A CONFIRMATION [RM] Stat Rapid Strep w/culture conf [STREP SCRN A RAPID W CULT CONF] [RM] Stat 10/25/18 20:15 Lactated Ringers [Ringers, Lactated] 1,000 ml IV ASDIRECTED
[2018-10-25] MEDS ORDERED: Potassium Chloride 20 MEQ Tab.ER PO ONE (18:55)
[2018-10-25] MEDS ORDERED: Meclizine 12.5 MG Tab PO ONE (20:02)
[2018-10-25] MEDS ORDERED: Lactated Ringers 1,000 ML IV SCH (20:15)
[2018-10-25 20:26] VITALS: BP 108/69
--- NOTE | 2018-10-26 14:03 | CR ---
Chest: Two views of the chest were obtained. Comparison: No prior chest x-ray. Heart size and mediastinum are normal. Lungs are clear. Bony structures show slight degenerative change within the spine. Surgical clips are seen within the upper abdomen. Impression: 1. Nothing acute is seen on two-view chest x-ray. Diagnostic code #2
== END 2018-10-25 23:11 | disposition home or self-care (01) ==
LOC: JD.ED 15:57
DX: G43.909 Migraine, unspecified, not intractable, without status migrainosus (principal); R19.7 Diarrhea, unspecified; E86.0 Dehydration; R05 Cough; Z88.5 Allergy status to narcotic agent; Z91.041 Radiographic dye allergy status; Z88.8 Allergy status to other drugs, medicaments and biological substances
CPT/HCPCS: 36415; 71046; 80053; 84484; 85025; 87081; 87430; 87804; 93005; 96361; 96374; 96376; 99284; A9270; J2765; J7120